=== PATIENT | female | born 1985 | race Caucasian/White ===

== ENCOUNTER 2023-04-10 21:37 | Emergency (ER) | payer OTHER, SELFPAY ==
--- NOTE | ~2023-04-10 | CT_ITS ---
EXAMINATION: CT cervical spine wo con DATE: 04/10/2023 22:15 INDICATION: Head injury. TECHNIQUE: Computed tomography (CT) of the cervical spine was performed without intravenous contrast. Automated exposure control and iterative reconstruction technique were employed. The dose-length pro duct was 658.00 mGy-cm. COMPARISON: None FINDINGS: There is kyphosis of cervical spine. There is 6 degrees dextrocurvature of cervical spine. Vertebral body heights are normal. There is mildly decreased disc height at C4-C5. The following disc levels are specifically discussed: C2-C3: There is no uncovertebral joint osteoarthritis. There is no facet joint osteoarthritis. There is no neural foraminal stenosis. There is no central canal stenosis. C3-C4: There is no uncovertebral joint osteoarthritis. There is no facet joint osteoarthritis. There is no neural foraminal stenosis. There is no central canal stenosis. C4-C5: There is mild bilateral uncovertebral joint osteoarthritis. There is mild left facet joint ost eoarthritis. There is no neural foraminal stenosis. There is mild central canal stenosis. C5-C6: There is no uncovertebral joint osteoarthritis. There is no facet joint osteoarthritis. There is no neural foraminal stenosis. There is no central canal stenosis. C6-C7: There is no uncovertebral joint osteoarthritis. There is no facet joint osteoarthritis. There is no neural foraminal stenosis. There is no central canal stenosis. C7-T1: There is no uncovertebral joint osteoarthritis. There is moderate right and mild left facet elisa int osteoarthritis. There is mild right neural foraminal stenosis. There is no central canal stenosis . IMPRESSION: 1. No fracture. 2. Mild cervical spondylosis. Reviewed, dictated and finalized at location E. ORDER DETAILER
--- NOTE | ~2023-04-10 | CT_ITS ---
EXAMINATION: CT brain wo con DATE: 04/10/2023 22:15 INDICATION: Head injury. TECHNIQUE: Computed tomography (CT) of the head was performed without intravenous contrast. The mA wa s adjusted according to patient size. Iterative reconstruction technique was employed. The dose-lengt h product was 605.33 mGy-cm. COMPARISON: None FINDINGS: There is no intracranial hemorrhage, acute infarction, or abnormal intracranial mass lesion . The ventricles are normal in size. There is mild mucosal thickening in the ethmoid sinuses. The orb its are normal. The mastoid air cells are normal. IMPRESSION: 1. Normal brain. Reviewed, dictated and finalized at location E. TRUCTION SAFETY CONSULTANT IMPRESSION: 1. Normal brain.
--- NOTE | ~2023-04-10 | XR_ITS ---
EXAMINATION: XR knee LT 3V DATE: 04/10/2023 22:20 INDICATION: Left knee pain and swelling. Fall. TECHNIQUE: 3 views of left knee were obtained. COMPARISON: None. FINDINGS: There is a total left knee arthroplasty with patellar resurfacing in near-anatomic alignmen t. No fracture. No periprosthetic lucency to suggest loosening or infection. No fracture. There is a radiopaque marker from anterior cruciate ligament reconstruction. No knee joint effusion. IMPRESSION: 1. Total left knee arthroplasty in near-anatomic alignment. Reviewed, dictated and finalized at location E. INGS TIGHTENER
[2023-04-10 21:32] VITALS: BP 114/75; PULSE 102; RESP 18; TEMP 36.6; O2SAT 97
[2023-04-10] MEDS: ONDANSETRON INJ 4 MG/2 ML VIAL IV PUSH (22:25)
[2023-04-10] MEDS: HYDROmorphone HCL INJ (*CRX) 1 MG/ML SYR 0.5 MG IV PUSH (22:28)
--- NOTE | 2023-04-10 22:28 | ED.FALL ---
HPI - Fall General Chief Complaint: Fall Stated Complaint: FALL, LEFT KNEE PAIN Time Seen by Provider: 04/10/23 21:44 Source: patient Mode of arrival: EMS Limitations: no limitations History of Present Illness HPI Narrative: Patient is 38-year-old female who presents the ED via EMS with report of left knee pain. Patient lives in [place] and is currently in the area staying in a hotel with her daughter. She states she went to the bathroom this evening and slipped on a elevated tile. She fell directly onto her left knee, she did also hit her head and attempt to catch herself with her arms. Denied LOC. Patient had difficulty ambulating after the fall to pain. She has history of left knee replacement in February. Denies numbness. Denies dizziness, lightheadedness, vision changes, nausea, vomiting. Related Data Allergies Allergy/AdvReac Type Severity Reaction Status Date / Time enoxaparin Allergy Severe Swelling Verified 11/03/15 09:23 penicillin G Allergy Severe HIVES Verified 10/30/15 18:19 ketorolac Allergy Mild Nausea and Verified 11/03/15 09:23 Vomiting tramadol Allergy Mild Nausea and Verified 11/03/15 09:23 Vomiting Review of Systems Review of Systems: CONSTITUTIONAL: Denies fever, chills, or sweats. MUSCULOSKELETAL: See HPI NEUROLOGIC: See HPI All systems reviewed & are unremarkable except as noted in HPI and below Exam Narrative: GENERAL: Well appearing, obese, non-toxic, in no acute distress. HEAD: Normocephalic, atraumatic. RESPIRATORY: Airway patent, respirations nonlabored. Clear to auscultation bilaterally, no rales, rhonchi, wheezing. CARDIOVASCULAR: Regular rate and rhythm without murmurs, rubs, or gallops. Pedal pulses 2+ MUSCULOSKELETAL: No gross deformities. Limited ROM of L knee due to pain. Midline surgical scar to L anterior knee. No erythema, drainage. Small central scab. Area of swelling to left lateral distal femur with focal tenderness to palpation. Sensation intact. No midline cervical, thoracic, lumbar spinal tenderness. SKIN: Warm, dry, normal color. NEURO: A&O X3. Speech clear. Cranial nerves II-XII grossly intact. No ataxic movements. PSYCHIATRIC: Appropriate mood and affect. Normal interaction. Course Vital Signs Vital signs: Vital Signs Temperature 98 F 04/10/23 21:32 Pulse Rate 102 H 04/10/23 21:32 Respiratory Rate 18 04/10/23 21:32 Blood Pressure 114/75 04/10/23 21:32 Pulse Oximetry 97 04/10/23 21:32 Oxygen Delivery Room Air 04/10/23 21:32 Temperature 98 F 04/10/23 21:32 Pulse Rate 102 H 04/10/23 21:32 Respiratory Rate 18 04/10/23 21:32 Blood Pressure 114/75 04/10/23 21:32 Pulse Oximetry 97 04/10/23 21:32 Oxygen Delivery Room Air 04/10/23 21:32 MDM - Fall MDM Narrative Medical decision making narrative: Patient presents to ED status post ground level fall, pain to left knee, recent left knee replacement, head injury, no LOC. Patient neurologically intact. No gross deformities on exam. Mild area of swelling to lateral knee/ distal femur. X-ray of left knee without acute fracture, dislocation, malalignment of prosthesis. no joint effusion noted. Patient placed in Geo bandage for support. Do not want to limit activity too much as patient has been progressing well in physical therapy. CT brain and cervical spine also negative for acute findings. Patient updated on imaging results. Able to ambulate with walker. Pain improved with supportive therapy. Patient does have pain medication at home that she can use. Advised close follow-up with logistics specialist. Otherwise patient felt stable for discharge home and continued outpatient management. Patient in agreement with this plan. She feels comfortable with discharge home. D/C in stable condition. Medical Records Attestation: I reviewed the patient's medical records. Imaging Data Attestation: I personally reviewed and interpreted this imaging study a
[2023-04-10] MEDS: KETOROLAC 30 MG/ML VIAL (*BKC) IV PUSH (23:12)
[2023-04-10 23:58] VITALS: BP 114/76; PULSE 101; RESP 22; TEMP 36.6; O2SAT 97
== END 2023-04-11 00:01 | disposition home or self-care (01) ==
LOC: ANHED 23:44
PROVIDERS: Emergency Provider Physician Assistant
DX: S86.912A Strain of unspecified muscle(s) and tendon(s) at lower leg level, left leg, initial encounter (principal); S09.90XA Unspecified injury of head, initial encounter; Z96.652 Presence of left artificial knee joint; M47.812 Spondylosis without myelopathy or radiculopathy, cervical region; W01.0XXA Fall on same level from slipping, tripping and stumbling without subsequent striking against object, initial encounter
CPT/HCPCS: 70450; 72125; 73562; 96374; 96375; 99284; J1170; J1885; J2405